=== PATIENT | male | born 1965 | race African-American/Black ===

== ENCOUNTER 2022-01-14 13:06 | Inpatient (IN) ==
[2022-01-14] MEDS ORDERED: VANCOMYCIN INJ 1,000 MG in SODIUM CHLORIDE 0.9% 250 ML IV STA (17:03)
[2022-01-14 18:18] LABS: Basophils # 0.1 10*3/uL (0.0-0.2); Basophils % 0.5 % (0.0-0.8); Eosinophils # 0.3 10*3/uL (0.0-0.87); Eosinophils % 2.2 % (0.00-10.9); Hematocrit 34.6 VOL% (42.0-52.0); Hemoglobin 11.5 GM/DL (14.0-18.0); Immature Granulocytes % 0.6 %; Immature Granulocytes Absolute 0.08 #; Lymphocytes # 1.9 10*3/uL (1.4-4.0); Lymphocytes % 13.7 % (21.2-54.2); Mean Corpuscular HGB Conc 33.2 GM/DL (32-36); Mean Corpuscular Volume 92.3 FL (87-102); Mean Platelet Volume 11.8 FL (9.6-12.0); Monocytes # 1.6 10*3/uL (0.11-0.8); Monocytes % 11.8 % (1.7-12.7); Neutrophils % 71.2 % (38.7-73.9); Platelet Count 284 T/CUMM (130-400); Red Blood Count 3.75 MC/CUMM (3.8-5.5); Red Cell Distribution Width 14.9 % (9.3-17.3); White Blood Count 13.9 T/CUMM (4-12)
[2022-01-14 19:10] LABS: Albumin 2.7 G/DL (3.4-5.0); Bilirubin,Total 0.5 MG/DL (0.20-1.00); Calcium 9.1 MG/DL (8.5-10.1); Osmolality,Calculated 280.1 MOS/KG (273-304); Potassium 3.6 MMOL/L (3.5-5.1); Total Protein 7.5 G/DL (6.4-8.2)
[2022-01-14] MEDS ORDERED: ONDANSETRON 4 MG/2 ML VIAL IV PRN (20:49)
[2022-01-14] MEDS ORDERED: GLUCAGON 1 MG VIAL IM PRN (20:49)
[2022-01-14] MEDS ORDERED: DEXTROSE 10% 250 ML BAG IV PRN (21:04)
[2022-01-14] MEDS ORDERED: VANCOMYCIN INJ 750 MG in SODIUM CHLORIDE 0.9% 250 ML IV PRN (21:09)
[2022-01-14] MEDS: INSULIN LISPRO 100 UNIT/ML SUBCUT SCH (21:41)
[2022-01-14] MEDS: CLINDAMYCIN INJ 300 MG/50 ML PREMIX IV SCH (21:44)
[2022-01-14] MEDS: hydrALAZINE 20 MG/1 ML VIAL IV PRN (21:44)
[2022-01-14] MEDS ORDERED: VANCOMYCIN INJ 1,250 MG in SODIUM CHLORIDE 0.9% 250 ML IV ONE (22:00)
[2022-01-15] MEDS ORDERED: VANCOMYCIN INJ 1,250 MG in SODIUM CHLORIDE 0.9% 250 ML IV ONE
[2022-01-15] MEDS: CLINDAMYCIN INJ 300 MG/50 ML PREMIX IV SCH ×4 (03:24→21:09)
[2022-01-15] MEDS: hydrALAZINE 20 MG/1 ML VIAL IV PRN ×2 (03:40→11:43)
[2022-01-15 04:43] LABS: Basophils # 0.1 10*3/uL (0.0-0.2); Basophils % 0.5 % (0.0-0.8); Eosinophils # 0.3 10*3/uL (0.0-0.87); Eosinophils % 1.8 % (0.00-10.9); Hemoglobin 10.6 GM/DL (14.0-18.0); Immature Granulocytes % 0.4 %; Immature Granulocytes Absolute 0.06 #; Lymphocytes # 1.8 10*3/uL (1.4-4.0); Lymphocytes % 13.1 % (21.2-54.2); Mean Corpuscular HGB Conc 32.1 GM/DL (32-36); Mean Corpuscular Volume 93.5 FL (87-102); Mean Platelet Volume 12.2 FL (9.6-12.0); Monocytes % 14.6 % (1.7-12.7); Neutrophils % 69.6 % (38.7-73.9); Platelet Count 274 T/CUMM (130-400); Red Blood Count 3.53 MC/CUMM (3.8-5.5); Red Cell Distribution Width 15.1 % (9.3-17.3); White Blood Count 13.9 T/CUMM (4-12)
[2022-01-15 05:04] LABS: Calcium 9.2 MG/DL (8.5-10.1); Osmolality,Calculated 276.7 MOS/KG (273-304); Potassium 3.2 MMOL/L (3.5-5.1)
[2022-01-15] MEDS: INSULIN LISPRO 100 UNIT/ML SUBCUT SCH ×4 (07:35→21:08)
[2022-01-15] MEDS: PANTOPRAZOLE 40 MG TABLET PO SCH (09:00)
[2022-01-15] MEDS ORDERED: DEXTROSE 50% 25 GM/50 ML SYRINGE IV ONE (10:24)
[2022-01-15] MEDS ORDERED: SEVOFLURANE 1 UNIT/15 MINUTE INH ONE (10:27)
[2022-01-15] MEDS ORDERED: LIDOCAINE 2% 5 ML VIAL ONE (10:27)
[2022-01-15] MEDS ORDERED: fentaNYL 100 MCG/2 ML VIAL ONE (10:27)
[2022-01-15] MEDS ORDERED: propofoL 200 MG/20 ML VIAL IV ONE (10:27)
[2022-01-15] MEDS ORDERED: ETOMIDATE 40 MG/20 ML VIAL IV ONE (10:27)
[2022-01-15] MEDS ORDERED: MIDAZOLAM 2 MG/2 ML VIAL ONE (10:27)
[2022-01-15] MEDS ORDERED: SODIUM CHLORIDE 0.9% 250 ML IV SCH (10:30)
[2022-01-15] MEDS ORDERED: hydrALAZINE 20 MG/1 ML VIAL IV ONE (13:20)
[2022-01-15] MEDS: HYDROmorphone 1 MG/1 ML SYRINGE IV PRN (14:46)
[2022-01-15] MEDS ORDERED: POTASSIUM CHLORIDE 20 MEQ TABLET PO ONE (15:07)
[2022-01-15] MEDS ORDERED: POTASSIUM CHLORIDE 10 MEQ TABLET PO ONE (15:30)
[2022-01-15 15:58] LABS: % Iron Saturation 21.9 % (18-50); Risk Ratio 2.39; VLDL Cholesterol 25.6 MG/DL
[2022-01-15 16:18] LABS: Folate > 24.00 NG/ML (5.38-24.0)
[2022-01-15] MEDS: cloNIDine 0.1 MG TABLET PO SCH (21:07)
[2022-01-15] MEDS: METOPROLOL TARTRATE 100 MG TABLET PO SCH (21:07)
[2022-01-16] MEDS: CLINDAMYCIN INJ 300 MG/50 ML PREMIX IV SCH ×2 (03:38→11:54)
[2022-01-16 05:04] LABS: Basophils # 0.1 10*3/uL (0.0-0.2); Basophils % 0.5 % (0.0-0.8); Eosinophils # 0.3 10*3/uL (0.0-0.87); Eosinophils % 2.2 % (0.00-10.9); Hematocrit 31.8 VOL% (42.0-52.0); Hemoglobin 10.4 GM/DL (14.0-18.0); Immature Granulocytes % 0.7 %; Immature Granulocytes Absolute 0.08 #; Lymphocytes # 1.2 10*3/uL (1.4-4.0); Lymphocytes % 9.5 % (21.2-54.2); Mean Corpuscular HGB Conc 32.7 GM/DL (32-36); Mean Corpuscular Volume 92.4 FL (87-102); Mean Platelet Volume 12.1 FL (9.6-12.0); Monocytes # 1.9 10*3/uL (0.11-0.8); Monocytes % 15.8 % (1.7-12.7); Neutrophils % 71.3 % (38.7-73.9); Platelet Count 308 T/CUMM (130-400); Red Blood Count 3.44 MC/CUMM (3.8-5.5); Red Cell Distribution Width 15.1 % (9.3-17.3); White Blood Count 12.1 T/CUMM (4-12)
[2022-01-16 05:17] LABS: Calcium 8.6 MG/DL (8.5-10.1); Osmolality,Calculated 278.8 MOS/KG (273-304); Potassium 3.7 MMOL/L (3.5-5.1)
[2022-01-16] MEDS: HYDROmorphone 1 MG/1 ML SYRINGE IV PRN ×3 (05:22→18:32)
[2022-01-16 05:28] LABS: Eosinophils 3 % (0-10); Lymphocytes 7 % (20-55); Platelet Estimate Adequate; Total Cells Counted 100
[2022-01-16] MEDS ORDERED: DIAZEPAM 5 MG TABLET PO ONE (07:00)
[2022-01-16] MEDS: SODIUM CHLORIDE 0.45% 1,000 ML IV SCH (07:32)
[2022-01-16] MEDS ORDERED: HEPARIN 5,000 UNIT/1 ML VIAL ONE (07:53)
[2022-01-16] MEDS ORDERED: fentaNYL 100 MCG/2 ML VIAL IV ONE (08:00)
[2022-01-16] MEDS ORDERED: MIDAZOLAM 2 MG/2 ML VIAL IV ONE (08:00)
[2022-01-16] MEDS ORDERED: HEPARIN/NACL 0.9% 2 UNITS/ML 4,000 UNIT/2,000 ML BAG IV ONE (08:01)
[2022-01-16 08:36] LABS: INR 1.4
[2022-01-16] MEDS: hydrALAZINE 20 MG/1 ML VIAL IV PRN (09:36)
[2022-01-16] MEDS ORDERED: diphenhydrAMINE 50 MG/1 ML VIAL ONE (10:11)
[2022-01-16] MEDS ORDERED: hydrALAZINE 20 MG/1 ML VIAL IV ONE (10:12)
[2022-01-16] MEDS ORDERED: diphenhydrAMINE 50 MG/1 ML VIAL IV ONE (10:14)
[2022-01-16] MEDS: INSULIN LISPRO 100 UNIT/ML SUBCUT SCH ×4 (10:48→20:29)
[2022-01-16] MEDS: cloNIDine 0.1 MG TABLET PO SCH ×2 (11:40→20:55)
[2022-01-16] MEDS: METOPROLOL TARTRATE 100 MG TABLET PO SCH ×2 (11:40→20:56)
[2022-01-16] MEDS: PANTOPRAZOLE 40 MG TABLET PO SCH (11:56)
[2022-01-16] MEDS ORDERED: amLODIPine 10 MG TABLET PO ONE (12:00)
[2022-01-16] MEDS ORDERED: cefTRIAXone 1,000 MG in SODIUM CHLORIDE 0.9% 100 ML IV ONE (14:30)
[2022-01-16] MEDS ORDERED: SILDENAFIL 20 MG TABLET PO PRN (14:37)
[2022-01-16] MEDS ORDERED: HEPARIN 10,000 UNIT/10 ML VIAL IV PRN (15:29)
[2022-01-16 16:19] LABS: Hepatitis B Core IgM Quant 0.05 Index; Hepatitis B Surface Ag Quant < 0.10 Index; Hepatitis B Surface Ag Result Non-Reactive (NonReactive); Hepatitis C Virus Ab Quant 0.12 Index; Hepatitis C Virus Ab Result Non-Reactive (NonReactive)
[2022-01-16] MEDS: cefTRIAXone 1,000 MG in SODIUM CHLORIDE 0.9% 100 ML IV SCH (16:22)
[2022-01-16] MEDS ORDERED: MULTIVITAMIN (BEROCCA) TABLET PO SCH (18:00)
[2022-01-16] MEDS: SUCROFERRIC OXYHYDROXIDE 500 MG PO SCH (18:21)
[2022-01-16] MEDS: GABAPENTIN 300 MG CAPSULE PO SCH ×2 (18:33→20:55)
[2022-01-16] MEDS: PRIMIDONE 50 MG TABLET PO SCH (20:55)
[2022-01-16] MEDS: ACETAMINOPHEN 325 MG TABLET PO PRN (20:56)
[2022-01-16] MEDS: DOCUSATE SODIUM 100 MG CAPSULE PO SCH (20:56)
[2022-01-16] MEDS ORDERED: RIVAROXABAN 2.5 MG TABLET PO SCH (21:00)
[2022-01-17 05:28] LABS: Basophils # 0.1 10*3/uL (0.0-0.2); Basophils % 0.8 % (0.0-0.8); Eosinophils # 0.4 10*3/uL (0.0-0.87); Eosinophils % 3.1 % (0.00-10.9); Hematocrit 34.4 VOL% (42.0-52.0); Hemoglobin 11.1 GM/DL (14.0-18.0); Immature Granulocytes % 0.4 %; Immature Granulocytes Absolute 0.06 #; Lymphocytes # 1.8 10*3/uL (1.4-4.0); Lymphocytes % 12.3 % (21.2-54.2); Mean Corpuscular HGB Conc 32.3 GM/DL (32-36); Mean Corpuscular Volume 92.7 FL (87-102); Mean Platelet Volume 12.1 FL (9.6-12.0); Monocytes # 1.7 10*3/uL (0.11-0.8); Monocytes % 12.1 % (1.7-12.7); Neutrophils % 71.3 % (38.7-73.9); Platelet Count 318 T/CUMM (130-400); Red Blood Count 3.71 MC/CUMM (3.8-5.5); Red Cell Distribution Width 15.3 % (9.3-17.3); White Blood Count 14.2 T/CUMM (4-12)
[2022-01-17] MEDS: hydrALAZINE 20 MG/1 ML VIAL IV PRN (05:39)
[2022-01-17 05:44] LABS: Osmolality,Calculated 281.4 MOS/KG (273-304); Potassium 4.6 MMOL/L (3.5-5.1)
[2022-01-17] MEDS: HYDROmorphone 1 MG/1 ML SYRINGE IV PRN (07:15)
[2022-01-17] MEDS: cloNIDine 0.1 MG TABLET PO SCH ×2 (11:03→21:01)
[2022-01-17] MEDS: PRIMIDONE 50 MG TABLET PO SCH ×2 (11:03→21:00)
[2022-01-17] MEDS: ASPIRIN EC 81 MG TABLET PO SCH (11:03)
[2022-01-17] MEDS: MULTIVITAMIN (CENTRUM) TABLET PO SCH (11:03)
[2022-01-17] MEDS: GABAPENTIN 300 MG CAPSULE PO SCH ×3 (11:03→21:01)
[2022-01-17] MEDS: CETIRIZINE 10 MG TABLET PO SCH (11:03)
[2022-01-17] MEDS: FERROUS SULFATE 325 MG TABLET PO SCH (11:03)
[2022-01-17] MEDS: amLODIPine 10 MG TABLET PO SCH (11:04)
[2022-01-17] MEDS: FENOFIBRATE 145 MG TABLET PO SCH (11:04)
[2022-01-17] MEDS: DOCUSATE SODIUM 100 MG CAPSULE PO SCH ×2 (11:04→21:01)
[2022-01-17] MEDS: PANTOPRAZOLE 40 MG TABLET PO SCH (11:04)
[2022-01-17] MEDS: METOPROLOL TARTRATE 100 MG TABLET PO SCH ×2 (11:04→21:01)
[2022-01-17] MEDS: SUCROFERRIC OXYHYDROXIDE 500 MG PO SCH ×3 (11:05→19:16)
[2022-01-17] MEDS: SODIUM HYPOCHLORITE 0.25% IRRIG 473 ML BOTTLE TOP SCH (11:10)
[2022-01-17] MEDS: CHOLECALCIFEROL 5,000 UNIT TABLET PO SCH (11:10)
[2022-01-17] MEDS: INSULIN LISPRO 100 UNIT/ML SUBCUT SCH ×4 (11:11→21:01)
[2022-01-17] MEDS: cefTRIAXone 1,000 MG in SODIUM CHLORIDE 0.9% 100 ML IV SCH (12:18)
[2022-01-17] MEDS ORDERED: POLYETHYLENE GLYCOL POWDER 17 GM PACK PO PRN (16:29)
[2022-01-17] MEDS ORDERED: POLYETHYLENE GLYCOL POWDER 17 GM PACK PO ONE (16:30)
[2022-01-17] MEDS: SODIUM CHLORIDE 0.45% 1,000 ML IV SCH (19:42)
[2022-01-17] MEDS: RIVAROXABAN 2.5 MG TABLET PO SCH (21:00)
[2022-01-18 07:28] LABS: Basophils # 0.1 10*3/uL (0.0-0.2); Basophils % 0.5 % (0.0-0.8); Eosinophils # 0.7 10*3/uL (0.0-0.87); Eosinophils % 5.3 % (0.00-10.9); Hematocrit 31.1 VOL% (42.0-52.0); Hemoglobin 10.2 GM/DL (14.0-18.0); Immature Granulocytes % 0.5 %; Immature Granulocytes Absolute 0.06 #; Lymphocytes # 1.3 10*3/uL (1.4-4.0); Lymphocytes % 10.8 % (21.2-54.2); Mean Corpuscular HGB Conc 32.8 GM/DL (32-36); Mean Corpuscular Volume 90.7 FL (87-102); Mean Platelet Volume 11.4 FL (9.6-12.0); Monocytes # 1.3 10*3/uL (0.11-0.8); Monocytes % 10.8 % (1.7-12.7); Neutrophils % 72.1 % (38.7-73.9); Platelet Count 349 T/CUMM (130-400); Red Blood Count 3.43 MC/CUMM (3.8-5.5); Red Cell Distribution Width 15.3 % (9.3-17.3); White Blood Count 12.2 T/CUMM (4-12)
[2022-01-18 07:45] LABS: Calcium 8.6 MG/DL (8.5-10.1); Osmolality,Calculated 283.4 MOS/KG (273-304); Potassium 4.9 MMOL/L (3.5-5.1)
[2022-01-18] MEDS: HYDROmorphone 1 MG/1 ML SYRINGE IV PRN ×2 (10:01→21:30)
[2022-01-18] MEDS: INSULIN LISPRO 100 UNIT/ML SUBCUT SCH ×4 (10:04→21:30)
[2022-01-18] MEDS: cloNIDine 0.1 MG TABLET PO SCH ×2 (10:06→21:30)
[2022-01-18] MEDS: RIVAROXABAN 2.5 MG TABLET PO SCH ×2 (10:06→21:30)
[2022-01-18] MEDS: DOCUSATE SODIUM 100 MG CAPSULE PO SCH ×2 (10:06→21:30)
[2022-01-18] MEDS: amLODIPine 10 MG TABLET PO SCH (10:07)
[2022-01-18] MEDS: MULTIVITAMIN (CENTRUM) TABLET PO SCH (10:07)
[2022-01-18] MEDS: CHOLECALCIFEROL 5,000 UNIT TABLET PO SCH (10:07)
[2022-01-18] MEDS: CETIRIZINE 10 MG TABLET PO SCH (10:07)
[2022-01-18] MEDS: GABAPENTIN 300 MG CAPSULE PO SCH ×3 (10:07→21:30)
[2022-01-18] MEDS: PANTOPRAZOLE 40 MG TABLET PO SCH (10:07)
[2022-01-18] MEDS: ASPIRIN EC 81 MG TABLET PO SCH (10:08)
[2022-01-18] MEDS: METOPROLOL TARTRATE 100 MG TABLET PO SCH ×2 (10:08→21:30)
[2022-01-18] MEDS: FENOFIBRATE 145 MG TABLET PO SCH (10:08)
[2022-01-18] MEDS: SODIUM CHLORIDE 0.45% 1,000 ML IV SCH (10:08)
[2022-01-18] MEDS: FERROUS SULFATE 325 MG TABLET PO SCH (10:08)
[2022-01-18] MEDS: PRIMIDONE 50 MG TABLET PO SCH ×2 (10:08→21:30)
[2022-01-18] MEDS: SUCROFERRIC OXYHYDROXIDE 500 MG PO SCH (10:08)
[2022-01-18] MEDS: SODIUM HYPOCHLORITE 0.25% IRRIG 473 ML BOTTLE TOP SCH (10:12)
[2022-01-18] MEDS: POLYETHYLENE GLYCOL POWDER 17 GM PACK PO SCH (11:48)
[2022-01-18] MEDS: cefTRIAXone 1,000 MG in SODIUM CHLORIDE 0.9% 100 ML IV SCH (11:54)
[2022-01-18] MEDS: SEVELAMER CARBONATE 800 MG TABLET PO SCH ×2 (12:46→17:07)
[2022-01-19 07:10] LABS: Basophils # 0.1 10*3/uL (0.0-0.2); Basophils % 0.5 % (0.0-0.8); Eosinophils # 0.5 10*3/uL (0.0-0.87); Eosinophils % 3.9 % (0.00-10.9); Hematocrit 28.8 VOL% (42.0-52.0); Hemoglobin 9.6 GM/DL (14.0-18.0); Immature Granulocytes % 0.5 %; Immature Granulocytes Absolute 0.07 #; Lymphocytes # 1.9 10*3/uL (1.4-4.0); Lymphocytes % 14.8 % (21.2-54.2); Mean Corpuscular HGB Conc 33.3 GM/DL (32-36); Mean Corpuscular Volume 89.7 FL (87-102); Mean Platelet Volume 11.6 FL (9.6-12.0); Monocytes # 1.4 10*3/uL (0.11-0.8); Monocytes % 10.4 % (1.7-12.7); Neutrophils % 69.9 % (38.7-73.9); Platelet Count 385 T/CUMM (130-400); Red Blood Count 3.21 MC/CUMM (3.8-5.5); White Blood Count 13.1 T/CUMM (4-12)
[2022-01-19 07:24] LABS: Calcium 8.5 MG/DL (8.5-10.1); Osmolality,Calculated 286.1 MOS/KG (273-304); Potassium 4.7 MMOL/L (3.5-5.1)
[2022-01-19] MEDS: INSULIN LISPRO 100 UNIT/ML SUBCUT SCH ×4 (08:22→20:34)
[2022-01-19] MEDS: HYDROmorphone 1 MG/1 ML SYRINGE IV PRN ×2 (11:27→19:45)
[2022-01-19] MEDS ORDERED: VANCOMYCIN INJ 750 MG in SODIUM CHLORIDE 0.9% 250 ML IV ONE (11:45)
[2022-01-19] MEDS ORDERED: VANCOMYCIN INJ 750 MG in SODIUM CHLORIDE 0.9% 250 ML IV PRN (14:11)
[2022-01-19] MEDS: cloNIDine 0.1 MG TABLET PO SCH ×2 (15:23→20:34)
[2022-01-19] MEDS: FENOFIBRATE 145 MG TABLET PO SCH (15:23)
[2022-01-19] MEDS: CHOLECALCIFEROL 5,000 UNIT TABLET PO SCH (15:24)
[2022-01-19] MEDS: DOCUSATE SODIUM 100 MG CAPSULE PO SCH ×2 (15:24→20:34)
[2022-01-19] MEDS: SEVELAMER CARBONATE 800 MG TABLET PO SCH ×3 (15:24→16:48)
[2022-01-19] MEDS: RIVAROXABAN 2.5 MG TABLET PO SCH ×2 (15:24→20:34)
[2022-01-19] MEDS: ASPIRIN EC 81 MG TABLET PO SCH (15:25)
[2022-01-19] MEDS: PANTOPRAZOLE 40 MG TABLET PO SCH (15:25)
[2022-01-19] MEDS: CETIRIZINE 10 MG TABLET PO SCH (15:26)
[2022-01-19] MEDS: PRIMIDONE 50 MG TABLET PO SCH ×2 (15:26→20:34)
[2022-01-19] MEDS: cilostazoL 100 MG TABLET PO SCH (15:26)
[2022-01-19] MEDS: MULTIVITAMIN (CENTRUM) TABLET PO SCH (15:26)
[2022-01-19] MEDS: amLODIPine 10 MG TABLET PO SCH (15:27)
[2022-01-19] MEDS: METOPROLOL TARTRATE 100 MG TABLET PO SCH ×2 (15:27→20:34)
[2022-01-19] MEDS: GABAPENTIN 300 MG CAPSULE PO SCH ×3 (15:27→20:34)
[2022-01-19] MEDS: POLYETHYLENE GLYCOL POWDER 17 GM PACK PO SCH (15:28)
[2022-01-19] MEDS: SODIUM HYPOCHLORITE 0.25% IRRIG 473 ML BOTTLE TOP SCH (15:28)
[2022-01-19] MEDS: cefTRIAXone 1,000 MG in SODIUM CHLORIDE 0.9% 100 ML IV SCH (15:28)
[2022-01-19] MEDS: SODIUM CHLORIDE 0.45% 1,000 ML IV SCH (15:38)
[2022-01-19] MEDS ORDERED: VANCOMYCIN INJ 2,250 MG in SODIUM CHLORIDE 0.9% 500 ML IV ONE (18:00)
[2022-01-20 05:22] LABS: Basophils # 0.1 10*3/uL (0.0-0.2); Basophils % 0.7 % (0.0-0.8); Eosinophils # 0.5 10*3/uL (0.0-0.87); Eosinophils % 3.8 % (0.00-10.9); Hematocrit 39.8 VOL% (42.0-52.0); Immature Granulocytes % 0.5 %; Immature Granulocytes Absolute 0.06 #; Lymphocytes # 1.5 10*3/uL (1.4-4.0); Lymphocytes % 12.3 % (21.2-54.2); Mean Corpuscular HGB Conc 32.7 GM/DL (32-36); Mean Corpuscular Volume 90.9 FL (87-102); Mean Platelet Volume 11.8 FL (9.6-12.0); Monocytes # 1.6 10*3/uL (0.11-0.8); Neutrophils % 69.7 % (38.7-73.9); Platelet Count 249 T/CUMM (130-400); Red Blood Count 4.38 MC/CUMM (3.8-5.5); Red Cell Distribution Width 15.4 % (9.3-17.3); White Blood Count 12.2 T/CUMM (4-12)
[2022-01-20 05:29] LABS: Calcium 7.7 MG/DL (8.5-10.1); Osmolality,Calculated 280.7 MOS/KG (273-304); Potassium 5.2 MMOL/L (3.5-5.1)
[2022-01-20] MEDS: HYDROmorphone 1 MG/1 ML SYRINGE IV PRN ×2 (06:29→19:27)
[2022-01-20] MEDS: cloNIDine 0.1 MG TABLET PO SCH ×2 (09:30→20:34)
[2022-01-20] MEDS: GABAPENTIN 300 MG CAPSULE PO SCH ×3 (09:31→20:34)
[2022-01-20] MEDS: SEVELAMER CARBONATE 800 MG TABLET PO SCH ×3 (09:31→16:50)
[2022-01-20] MEDS: cilostazoL 100 MG TABLET PO SCH (09:31)
[2022-01-20] MEDS: ASPIRIN EC 81 MG TABLET PO SCH (09:31)
[2022-01-20] MEDS: PRIMIDONE 50 MG TABLET PO SCH ×2 (09:31→20:34)
[2022-01-20] MEDS: DOCUSATE SODIUM 100 MG CAPSULE PO SCH ×2 (09:31→20:34)
[2022-01-20] MEDS: MULTIVITAMIN (CENTRUM) TABLET PO SCH (09:31)
[2022-01-20] MEDS: METOPROLOL TARTRATE 100 MG TABLET PO SCH ×2 (09:31→20:34)
[2022-01-20] MEDS: INSULIN LISPRO 100 UNIT/ML SUBCUT SCH ×4 (09:32→20:35)
[2022-01-20] MEDS: FENOFIBRATE 145 MG TABLET PO SCH (09:32)
[2022-01-20] MEDS: RIVAROXABAN 2.5 MG TABLET PO SCH ×2 (09:32→20:34)
[2022-01-20] MEDS: CETIRIZINE 10 MG TABLET PO SCH (09:32)
[2022-01-20] MEDS: amLODIPine 10 MG TABLET PO SCH (09:32)
[2022-01-20] MEDS: CHOLECALCIFEROL 5,000 UNIT TABLET PO SCH (09:32)
[2022-01-20] MEDS: PANTOPRAZOLE 40 MG TABLET PO SCH (09:32)
[2022-01-20] MEDS: POLYETHYLENE GLYCOL POWDER 17 GM PACK PO SCH (09:33)
[2022-01-20] MEDS: SODIUM HYPOCHLORITE 0.25% IRRIG 473 ML BOTTLE TOP SCH (09:33)
[2022-01-20] MEDS: SODIUM CHLORIDE 0.45% 1,000 ML IV SCH (10:53)
[2022-01-20] MEDS: cefTRIAXone 1,000 MG in SODIUM CHLORIDE 0.9% 100 ML IV SCH (13:44)
[2022-01-20] MEDS: ACETAMINOPHEN 325 MG TABLET PO PRN (23:23)
[2022-01-21] MEDS: SODIUM CHLORIDE 0.45% 1,000 ML IV SCH (07:23)
[2022-01-21] MEDS: INSULIN LISPRO 100 UNIT/ML SUBCUT SCH ×2 (08:02→11:43)
[2022-01-21] MEDS: DOCUSATE SODIUM 100 MG CAPSULE PO SCH (08:02)
[2022-01-21] MEDS: SEVELAMER CARBONATE 800 MG TABLET PO SCH ×2 (08:02→12:20)
[2022-01-21] MEDS: PRIMIDONE 50 MG TABLET PO SCH (08:03)
[2022-01-21] MEDS: PANTOPRAZOLE 40 MG TABLET PO SCH (08:03)
[2022-01-21] MEDS: RIVAROXABAN 2.5 MG TABLET PO SCH (08:03)
[2022-01-21] MEDS: CHOLECALCIFEROL 5,000 UNIT TABLET PO SCH (08:03)
[2022-01-21] MEDS: CETIRIZINE 10 MG TABLET PO SCH (08:03)
[2022-01-21] MEDS: cilostazoL 100 MG TABLET PO SCH (08:03)
[2022-01-21] MEDS: MULTIVITAMIN (CENTRUM) TABLET PO SCH (08:04)
[2022-01-21] MEDS: GABAPENTIN 300 MG CAPSULE PO SCH (08:04)
[2022-01-21] MEDS: METOPROLOL TARTRATE 100 MG TABLET PO SCH (08:04)
[2022-01-21] MEDS: ASPIRIN EC 81 MG TABLET PO SCH (08:04)
[2022-01-21] MEDS: cloNIDine 0.1 MG TABLET PO SCH (08:04)
[2022-01-21] MEDS: amLODIPine 10 MG TABLET PO SCH (08:05)
[2022-01-21] MEDS: FENOFIBRATE 145 MG TABLET PO SCH (08:05)
[2022-01-21] MEDS: SODIUM HYPOCHLORITE 0.25% IRRIG 473 ML BOTTLE TOP SCH (08:05)
[2022-01-21] MEDS: POLYETHYLENE GLYCOL POWDER 17 GM PACK PO SCH (08:05)
[2022-01-21] MEDS ORDERED: LEVOFLOXACIN 500 MG TABLET PO SCH (10:30)
[2022-01-21 11:42] VITALS: BP 120/69
[2022-01-21] MEDS: cefTRIAXone 1,000 MG in SODIUM CHLORIDE 0.9% 100 ML IV SCH (12:20)
== END 2022-01-21 14:59 | disposition home health service (06) | DRG 239 ==
LOC: N.ED 13:06 → N.EDINP 20:49 → N.5E 23:30
PROVIDERS: ADMIT Internal Medicine; ATTEND Internal Medicine